=== PATIENT | male | born 1950 | race Caucasian/White ===

== ENCOUNTER 2019-12-17 11:27 | Day surgery (SDC) | payer OTHER, SELFPAY ==
[2019-12-17 11:33] VITALS: BP 131/72; PULSE 56; RESP 16; TEMP 36.5; O2SAT 97
[2019-12-17] MEDS: Tetracaine 0.5% 4 ML BTL OD (12:44)
[2019-12-17] MEDS: Lidocaine 1% Pres-Free 5 ML VIAL (12:55)
[2019-12-17] MEDS: Moxifloxacin-PF 1 MG/ML VIAL (12:56)
[2019-12-17] MEDS: Balanced Salt Soln.-PLUS 500 ML BAG (12:57)
[2019-12-17] MEDS: Lidocaine 2% Jelly 6 ML SYR (12:57)
--- NOTE | 2019-12-17 13:26 | W.PM.DSUDISC ---
Discharge Plan Disposition Patient Disposition: HOME Condition: Good Discharge Details Reason For Visit: CATARACT OD Attending Provider: Roberto Thomas Primary Care Provider: Solitario Estes Home Meds and New Rx's Prescriptions: No Action atorvastatin 20 mg Tablet 20 mg PO DAILY RF: 0 (DME) Blood Glucose Test Strip MISCELLANEOUS RF: 0 glipizide 5 mg Tablet 5 mg PO BID RF: 0 (DME) lancets Misc MISCELLANEOUS RF: 0 (DME) blood-glucose meter [Blood Glucose Monitoring] Kit MISCELLANEOUS RF: 0 Januvia 50 mg Tablet 50 mg PO DAILY RF: 0 lisinopril 2.5 mg Tablet 2.5 mg PO DAILY RF: 0 meclizine 25 mg Tablet 25 mg PO TID PRNRF: 0 metformin 500 mg Tablet 2,000 mg PO DAILY RF: 0 prochlorperazine maleate 10 mg Tablet 10 mg PO TID PRNRF: 0 tadalafil 5 mg Tablet 5 mg PO DAILY PRNRF: 0 aspirin [Aspir-81] 81 mg Tablet,Delayed Release (Dr/Ec) 81 mg PO DAILY RF: 0 Proactive Comfort Eye Health 50 mg-15 unit- 4.5 mg-2.5 mg Tablet,Chewable 2 tab PO DAILY RF: 0 Discharge Instructions Stand Alone Forms: Post-op Topical Cataract, Chioma Bailey (DSU) Discharge Orders Discharge Orders: Discharge Order (Routine); Ordered 12/17/19 Ordered By: Roberto Thomas DS: Diagnosis Discharge Diagnosis (1) Cortical cataract of right eye: Status: Resolved (2) Nuclear sclerotic cataract of right eye: Status: Resolved (3) High myopia, right eye: Status: Chronic
--- NOTE | 2019-12-17 13:27 | ROE_ITS ---
Date of service: 12/17/19 Time of Service: 13:28 Operative Note Operative Note DATE OF PROCEDURE: 12/17/19 PRE-OP DIAGNOSIS: Nuclear/cortical cataract, right eye; high myopia, right eye POST-OP DIAGNOSIS: same PROCEDURE: Cataract extraction using phacoemulsification with intraocular lens implant, right eye SURGEON: Roberto Thomas ANESTHESIA: MAC and local (sub-tenon's anesthetic infiltration) ESTIMATED BLOOD LOSS: 0 PATHOLOGY: none sent COMPLICATIONS: None Patient was transported to: same day Patient's condition: stable Implants: [employer] / [employer] Tecnis ZCB00 intraocular lens Indications: Progressive decreased vision due to cataract, right eye Procedure Description: CATARACT SURGERY OPERATIVE REPORT PREOPERATIVE DIAGNOSIS: Nuclear/cortical cataract, right eye High myopia, right eye POSTOPERATIVE DIAGNOSIS: Same OPERATION: Cataract extraction using phacoemulsification with posterior chamber intraocular lens implant, right eye. IOL: IOL Telecom Engineer/Model: [employer] / RASHAD Tecnis ZCB00 IOL Power: + 8.0 diopters IOL Serial Number: [id number] Optic Diameter: 6.0mm Haptic/Overall Diameter: 13.0mm PHACO INFO: [employer] Labsurion Vision System with OZil and Active Fluidics Cumulative Dispersed Energy (CDE): 7.48 seconds SURGEON: Roberto Thomas MD, REBECCA ANESTHESIA: Monitored Anesthesia Care (MAC), with local sub-tenon's anesthetic infiltration COMPLICATIONS: None SPECIMENS: None INDICATIONS FOR PROCEDURE: The patient is a 69-year-old gentleman with history of high myopia. He has longstanding poor vision in his left eye secondary to history of ocular trauma. He has now developed a symptomatic nuclear and cortical cataract in the right eye. The option of cataract surgery was offered to the patient and he wished to proceed. PROCEDURE: The correct surgical eye was identified and marked as the right eye and the pupil was dilated in the preoperative area using mydriatics and cycloplegics. The dilated pupil size was 7.5 mm. Oral sedation was administered in the form of an Imprimis MKO Melt (midazolam 3mg/ketamine 25mg/ondansetron 2mg). The patient was brought to the operating room where cardiopulmonary monitoring was instituted and surgical time-out was performed, confirming the correct operative eye and IOL power. Topical anesthesia was administered and ophthalmic povidone-iodine 5% was instilled into the conjunctival fornices. Lidocaine gel was applied to the cornea and the radha-ocular area was prepped with Betadine 10% solution and draped in the usual sterile fashion for intraocular surgery, including an aperture drape. A Tegaderm transparent film dressing was cut in half and used to cover the lashes and lid margins. Care was taken to sequester the lashes and lid margins under the Tegaderm dressing. A lid speculum was placed between the lids of the operative eye and the Dorita-Speedy operating microscope was maneuvered into position. Boyd scissors were then used to make a conjunctival buttonhole approximately 6mm posterior to the limbus in the inferonasal quadrant. Blunt dissection was carried out to expose bare sclera, and a blunt-tipped sub-tenon?s anesthesia cannula was introduced and passed posteriorly along the globe where non- preserved plain lidocaine was injected into posterior sub-Tenon?s space. A sideport knife was used to make a paracentesis port inferiortemporally. Intraocular phenylephrine/lidocaine was injected into the anterior chamber. The anterior chamber was then filled with Healon Pro. Fabiola scissors were used to make a conjunctival peritomy in the superior temporal quadrant. Hemostasis was obtained using cautery. A 2.4 mm keratome knife was used to create a half- thickness scleral groove approximately 1 mm posterior to the limbus and then to dissect a scleral corneal tunnel extending approximately 1 mm into clear cornea.. A flap was raised on the anterior capsule and capsulorhexis forceps were used to complete a continuous curvilinear capsulorhexis of 5.0 mm. The anterior chamber was noted to be quite deep with thin capsule. Balanced salt solution was then used to perform cortical cleaving hydrodissection and nuclear hydrodelineation until the lens could be freely rotated within the capsular bag. The lens nucleus was then disassembled and removed within the capsular bag and iris plane using phacoemulsification. Residual cortical material was removed using the I/A handpiece. The posterior capsule was carefully polished to remove as much residual lens epithelial cells as safely possible. The capsular bag was then inflated and the anterior chamber deepened with viscoelastic. The lens implant described above was inserted into the capsular bag using the RASHAD [place] Injector. A Kuglen hook was used to dial the IOL into position. Residual viscoelastic was then removed first from posterior to the IOL, then from the anterior chamber using the I/A handpiece. The lens implant was noted to center nicely within the capsular bag. The incisions were stromally hydrated, and the anterior chamber was reformed using BSS. Miostat was injected into the anterior chamber. Then 0.5cc of moxifloxacin 1.0mg/ml were injected into the capsular bag and anterior chamber. The incisions were checked with a Weck spear and found to be secure. Several drops of ophthalmic povidone-iodine 5% were then applied to the eye followed by two drops of Imprimis combination prednisolone/moxifloxacin/nepafenac solution. The drapes were removed and a clear plastic protective eye shield was placed over the eye. The patient was then returned to [facility] in stable condition.
== END 2019-12-17 13:45 | disposition home or self-care (01) ==
PROVIDERS: PCP Nurse Practitioner Acute Care; Visit Provider Ophthalmology
PROC: (CPT 66984; principal; 2019-12-17 14:30)
DX: H25.011 Cortical age-related cataract, right eye (principal); H25.11 Age-related nuclear cataract, right eye; H52.11 Myopia, right eye; E11.9 Type 2 diabetes mellitus without complications; Z79.84 Long term (current) use of oral hypoglycemic drugs
CPT/HCPCS: 66984; V2632